=== PATIENT | male | born 1965 | race Caucasian/White ===

== ENCOUNTER 2019-08-07 02:06 | Emergency (ER) | payer OTHER ==
[~2019-08-07] VITALS: Ht 180.3 cm; Wt 77.1 kg
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
[2019-08-07] MEDS ORDERED: HYDROCODONE/APAP 10/325MG 1 EA TABLET ONE (05:44)
--- NOTE | 2019-08-07 05:51 | NUR ---
Patient discharged to home in stable condition. Written and verbal after care instructions given. Patient verbalizes understanding of instruction and RX. VSS. Ambulatory with steady gait, signed homeless waiver.
[2019-08-07 05:58] VITALS: BP 134/86
[2019-08-07] MEDS ORDERED: HYDROCODONE/APAP 10/325MG 1 EA TABLET PO ONE (06:00)
== END 2019-08-07 06:00 | disposition home or self-care (01) ==
LOC: ER 02:11
DX: S40.021A Contusion of right upper arm, initial encounter (principal); S80.11XA Contusion of right lower leg, initial encounter; S00.83XA Contusion of other part of head, initial encounter; V03.10XA Pedestrian on foot injured in collision with car, pick-up truck or van in traffic accident, initial encounter; Y92.410 Unspecified street and highway as the place of occurrence of the external cause; Z59.0 Homelessness; F17.200 Nicotine dependence, unspecified, uncomplicated

== ENCOUNTER 2019-08-11 08:51 | Emergency (ER) | payer SELFPAY ==
[~2019-08-11] VITALS: Ht 177.8 cm; Wt 83.9 kg
[2019-08-11] MEDS ORDERED: ACETAMINOPHEN ES 500 MG TABLET ONE (10:22)
[2019-08-11] MEDS ORDERED: ACETAMINOPHEN ES 500 MG TABLET PO ONE (10:30)
--- NOTE | 2019-08-11 11:14 | NUR ---
PT SEEN BY SANDY. WAS PROVIDED W/ DRY CLOTHES AND MEAL TRAY. WAS GIVEN TYLENOL 1G PO FOR PAIN. PT IS AMBULATORY W/ STEADY GAIT. PT REFUSED HOMELESS HALFWAY REFFERALS STATING "I HAVE MONEY FOR A HOTEL ROOM." REFUSED TO SIGN HOMELESS PATIENT WAIVER. DISCHARGE IN STABLE CONDITION.
[2019-08-11 11:18] VITALS: BP 184/80
== END 2019-08-11 11:19 | disposition home or self-care (01) ==
LOC: ER 08:53
DX: T69.8XXA Other specified effects of reduced temperature, initial encounter (principal); M25.561 Pain in right knee; M25.562 Pain in left knee; J45.909 Unspecified asthma, uncomplicated; I10 Essential (primary) hypertension; Z59.0 Homelessness; Z88.1 Allergy status to other antibiotic agents; Z88.2 Allergy status to sulfonamides; Z88.6 Allergy status to analgesic agent

== ENCOUNTER 2019-08-18 11:27 | Emergency (ER) | payer SELFPAY ==
[~2019-08-18] VITALS: Ht 182.9 cm; Wt 81.6 kg
--- NOTE | 2019-08-18 11:29 | NUR ---
CALLED TO TRIAGE NO ANSWER.
--- NOTE | 2019-08-18 11:43 | NUR ---
SEEN AND EXAMINED BY .
--- NOTE | 2019-08-18 11:43 | NUR ---
PT BIB SELF C/O SI "I WANT TO JUMP IN FRONT OF THE TRAIN", PT IS AAOX4, NOT IN RESPIRATORY DISTRESS, HOOKED TO MONITOR, KEPT RESTED AND COMFORTABLE, WILL CONTINUE TO MONITOR.
--- NOTE | 2019-08-18 11:44 | NUR ---
SECURITY AT BEDSIDE FOR WANDING.
[2019-08-18] MEDS ORDERED: OLANZAPINE 5 MG TABLET PO ONE (12:00)
--- NOTE | 2019-08-18 12:00 | NUR ---
URINAL GIVEN BUT UNABLE TO PROVIDE URINE SPECIMEN THIS TIME.
[2019-08-18 12:09] LABS: BASOPHILS # (AUTO) 0.1 /CMM (0.0-0.2); BASOPHILS % (AUTO) 0.7 % (0.0-2.0); EOSINOPHILS % (AUTO) 1.1 % (0.0-6.0); HEMATOCRIT 34 % (39-51); HEMOGLOBIN 11.1 g/dL (13.5-17.5); LYMPHOCYTES # (AUTO) 1.7 /CMM (0.8-4.8); LYMPHOCYTES % (AUTO) 16.3 % (20.0-44.0); MEAN CORPUSCULAR HGB CONC 32 g/dl (31.0-36.0); MEAN CORPUSCULAR VOLUME 80 fL (80-96); NEUTROPHILS # (AUTO) 7.7 /CMM (1.8-8.9); NEUTROPHILS % (AUTO) 72.9 % (43.0-81.0); PLATELET COUNT (AUTO) 436 /CMM (150-450); RED BLOOD CELL COUNT(AUTO) 4.32 MIL/uL (4.5-6.0); WHITE BLOOD COUNT (AUTO) 10.6 K/uL (4.3-11.0)
[2019-08-18] MEDS ORDERED: OLANZAPINE 5 MG TABLET ONE (12:12)
[2019-08-18 12:21] LABS: CHLORIDE 102 mmol/L (98-107); POTASSIUM 4.6 mmol/L (3.5-5.1); SODIUM SERUM 135 mmol/L (136-145)
[2019-08-18 12:22] LABS: ALANINE AMINOTRANSFERASE 16 U/L (12-78); ALKALINE PHOSPHATASE 133 U/L (46-116); ASPARTATE AMINOTRANSFERASE 21 U/L (15-37); BILIRUBIN,DIRECT 0.1 mg/dL (0.0-0.2); BILIRUBIN,TOTAL 0.3 mg/dL (0.2-1.0); CALCIUM, SERUM 9.2 mg/dL (8.5-10.1); CARBON DIOXIDE 26 mmol/L (21-32); CREATININE 1.1 mg/dL (0.6-1.3); GLUCOSE 85 mg/dL (74-106); UREA NITROGEN, BLOOD 20 mg/dL (7-18)
[2019-08-18 12:23] LABS: ACETAMINOPHEN < 2 ug/ml (10-30); ALBUMIN 3.4 g/dL (3.4-5.0); ALCOHOL, BLOOD < 3 mg/dL (0-0); SALICYLATE 2.1 mg/dL (2.8-20.0); TOTAL PROTEIN, SERUM 7.6 g/dL (6.4-8.2)
--- NOTE | 2019-08-18 13:25 | NUR ---
URINE SPECIMEN COLLECTED AND SENT TO LAB.
[2019-08-18 13:48] LABS: APPEARANCE,URINE CLEAR (CLEAR); BILIRUBIN,URINE NEGATIVE (NEGATIVE); BLOOD, URINE NEGATIVE Ery/uL (NEGATIVE); COLOR,URINE YELLOW (YELLOW); KETONES,URINE NEGATIVE (NEGATIVE); LEUKOCYTE ESTERASE ,URINE NEGATIVE (NEGATIVE); NITRITE, URINE NEGATIVE (NEGATIVE); PROTEIN,URINE 30 mg/dl (NEGATIVE); UGLUCOSE NEGATIVE (NEGATIVE); UROBILINOGEN,URINE 0.2 EU/dL (0.2)
[2019-08-18 14:04] LABS: BACTERIA,URINE None seen /HPF (None Seen); RBC,URINE 0-2 /HPF (0-2); SQUAMOUS EPITHELIAL CELL,UR Rare /HPF (None Seen); WBC,URINE 0-2 /HPF (0-3)
--- NOTE | 2019-08-18 14:39 | NUR ---
FOOD TRAY PROVIDED, TOLERATED PO WELL.
--- NOTE | 2019-08-18 14:42 | NUR ---
CALLED INSURANCE MARKETING SPECIALIST MARCIA KING [employer]
--- NOTE | 2019-08-18 14:46 | NUR ---
NUCLEAR PHYSICS PROFESSOR CHRISTINE ETA 1 HOUR
--- NOTE | 2019-08-18 17:18 | NUR ---
Patient given written and verbal discharge instructions. Patient verbalizes understanding of instructions. Patient is ambulatory with steady gait. Refuses offer of prison placement. Patient given list of available shelters in surrounding area.
[2019-08-18 17:19] VITALS: BP 121/81
== END 2019-08-18 17:29 | disposition home or self-care (01) ==
LOC: ER 11:28
DX: R45.851 Suicidal ideations (principal); I10 Essential (primary) hypertension; J45.909 Unspecified asthma, uncomplicated; F17.200 Nicotine dependence, unspecified, uncomplicated; Z88.1 Allergy status to other antibiotic agents; Z88.2 Allergy status to sulfonamides; Z59.0 Homelessness
CPT/HCPCS: 36415; 80048; 80076; 80305; 80307; 80329; 81001; 85025; 85730; 99283; G0480; 81000-TC

== ENCOUNTER 2019-08-21 16:16 | Emergency (ER) | payer SELFPAY ==
[~2019-08-21] VITALS: Ht 182.9 cm; Wt 81.6 kg
[2019-08-21 16:27] VITALS: BP 138/90
[2019-08-21] MEDS ORDERED: IBUPROFEN 600 MG TABLET PO ONE ×2 (16:38→17:00)
--- NOTE | 2019-08-21 16:51 | NUR ---
Patient eloped from facility. ER MD notified.
== END 2019-08-21 16:52 | disposition left against medical advice (07) ==
LOC: ER 16:21
DX: M79.671 Pain in right foot (principal); I10 Essential (primary) hypertension; J45.909 Unspecified asthma, uncomplicated; Z88.1 Allergy status to other antibiotic agents; Z88.6 Allergy status to analgesic agent; Z88.2 Allergy status to sulfonamides; Z59.0 Homelessness

== ENCOUNTER 2019-09-22 20:55 | Emergency (ER) | payer SELFPAY ==
[~2019-09-22] VITALS: Ht 167.6 cm; Wt 72.6 kg
[2019-09-22 21:12] VITALS: BP 156/81
[2019-09-22] MEDS ORDERED: IBUPROFEN 600 MG TABLET PO ONE ×2 (22:30)
== END 2019-09-23 00:32 | disposition home or self-care (01) ==
LOC: ER 21:01
DX: M79.671 Pain in right foot (principal); F14.10 Cocaine abuse, uncomplicated; J45.909 Unspecified asthma, uncomplicated; I10 Essential (primary) hypertension; Z88.2 Allergy status to sulfonamides; Z88.1 Allergy status to other antibiotic agents; Z59.0 Homelessness; Z88.8 Allergy status to other drugs, medicaments and biological substances

== ENCOUNTER 2019-09-29 04:16 | Emergency (ER) | payer MEDICAID ==
[~2019-09-29] VITALS: Ht 180.3 cm; Wt 72.6 kg
[2019-09-29 04:16] VITALS: BP 168/89
== END 2019-09-29 05:25 | disposition home or self-care (01) ==
LOC: ER 04:17
DX: M79.671 Pain in right foot (principal); I10 Essential (primary) hypertension; J45.909 Unspecified asthma, uncomplicated; F17.200 Nicotine dependence, unspecified, uncomplicated; Z88.1 Allergy status to other antibiotic agents; Z88.2 Allergy status to sulfonamides; Z59.0 Homelessness

== ENCOUNTER 2019-10-04 07:12 | Emergency (ER) | payer MEDICAID ==
[~2019-10-04] VITALS: Ht 180.3 cm; Wt 68.0 kg
--- NOTE | 2019-10-04 07:12 | NUR ---
PT BIB SELF C/O SI WITH PLAN TO WALK IN FRONT OF A CAR. DENIES HI, PT IS AAOX3, NOT IN RESPIRATORY DISTRESS, HOOKED TO MONITOR, KEPT RESTED AND COMFORTABLE, WILL CONTINUE TO MONITOR.
--- NOTE | 2019-10-04 07:30 | NUR ---
URINE SPECIMEN COLLECTED AND SENT TO LAB
--- NOTE | 2019-10-04 07:33 | NUR ---
CALLED SECURITY FOR WANDING.
--- NOTE | 2019-10-04 07:51 | NUR ---
ER PHLEB AT BEDSIDE FOR BLOOD DRAW.
--- NOTE | 2019-10-04 08:00 | NUR ---
FOOD TRAY PROVIDED.
[2019-10-04 08:06] LABS: APPEARANCE,URINE Clear (CLEAR); BILIRUBIN,URINE Negative (NEGATIVE); BLOOD, URINE Trace-intact Ery/uL (NEGATIVE); COLOR,URINE Yellow (YELLOW); KETONES,URINE Negative (NEGATIVE); LEUKOCYTE ESTERASE ,URINE Negative (NEGATIVE); NITRITE, URINE Negative (NEGATIVE); PH,URINE 5.5 (5.0-8.0); PROTEIN,URINE 30 mg/dl (NEGATIVE); UGLUCOSE Negative (NEGATIVE); UROBILINOGEN,URINE 0.2 EU/dL (0.2)
[2019-10-04 08:06] LABS: BASOPHILS # (AUTO) 0.1 /CMM (0.0-0.2); BASOPHILS % (AUTO) 0.9 % (0.0-2.0); EOSINOPHILS % (AUTO) 0.7 % (0.0-6.0); HEMATOCRIT 29 % (39-51); HEMOGLOBIN 9.5 g/dL (13.5-17.5); LYMPHOCYTES # (AUTO) 1.2 /CMM (0.8-4.8); LYMPHOCYTES % (AUTO) 14.4 % (20.0-44.0); MEAN CORPUSCULAR HGB CONC 33 g/dl (31.0-36.0); MEAN CORPUSCULAR VOLUME 79 fL (80-96); MONOCYTES # (AUTO) 0.7 /CMM (0.1-1.30); MONOCYTES % (AUTO) 8.3 % (2.0-12.0); NEUTROPHILS # (AUTO) 6.3 /CMM (1.8-8.9); NEUTROPHILS % (AUTO) 75.7 % (43.0-81.0); PLATELET COUNT (AUTO) 315 /CMM (150-450); RED BLOOD CELL COUNT(AUTO) 3.71 MIL/uL (4.5-6.0); WHITE BLOOD COUNT (AUTO) 8.3 K/uL (4.3-11.0)
[2019-10-04 08:09] LABS: BACTERIA,URINE Few /HPF (None Seen); RBC,URINE 0-2 /HPF (0-2); SQUAMOUS EPITHELIAL CELL,UR None Seen /HPF (None Seen); WBC,URINE 0-2 /HPF (0-3)
[2019-10-04 08:20] LABS: CALCIUM, SERUM 8.7 mg/dL (8.5-10.1); CARBON DIOXIDE 25 mmol/L (21-32); CHLORIDE 106 mmol/L (98-107); CREATININE 1.4 mg/dL (0.6-1.3); GLUCOSE 87 mg/dL (74-106); POTASSIUM 3.6 mmol/L (3.5-5.1); SODIUM SERUM 139 mmol/L (136-145); UREA NITROGEN, BLOOD 26 mg/dL (7-18)
[2019-10-04 08:31] LABS: ACETAMINOPHEN 0 ug/ml (10-30); ALANINE AMINOTRANSFERASE 25 U/L (12-78); ALBUMIN 3.2 g/dL (3.4-5.0); ALCOHOL, BLOOD < 3 mg/dL (0-0); ALKALINE PHOSPHATASE 111 U/L (46-116); ASPARTATE AMINOTRANSFERASE 23 U/L (15-37); BILIRUBIN,DIRECT 0.1 mg/dL (0.0-0.2); BILIRUBIN,TOTAL 0.3 mg/dL (0.2-1.0); SALICYLATE 15.4 mg/dL (2.8-20.0)
--- NOTE | 2019-10-04 09:00 | NUR ---
CALLED FACILITIES SUPERVISOR FOR PT INFOR AND ADMISSION FOR [facility].
--- NOTE | 2019-10-04 11:07 | NUR ---
SW was informed by the ER staff that the pt is medically cleared and that he would like to be transferred to [facility] in [place]. SW met with the pt at bedside and the pt is alert and oriented x4 (time, place, self and situation). Pt states that he is feeling suicidal and has a plan to walk in front of a car. ROMEL faxed a referral to [facility] with attn to [place] to the fax number: [phone]. ROMEL to follow up with the pts transfer.
--- NOTE | 2019-10-04 12:34 | NUR ---
SPOKE TO SOLOMON FROM [facility]. [phone], INTAKE DEPT. AWAITING CALL BACK FOR CONFIRMATION OF ADMITTING THE PATIENT.
--- NOTE | 2019-10-04 13:30 | NUR ---
LUNCH TRAY PROVIDED.
[2019-10-04] MEDS ORDERED: ACETAMINOPHEN ES 500 MG TABLET ONE (17:04)
[2019-10-04] MEDS ORDERED: ACETAMINOPHEN ES 500 MG TABLET PO ONE (17:30)
--- NOTE | 2019-10-05 01:24 | NUR ---
PT RESTING COMFORTABLY IN BED. NO ACUTE DISTRESS NOTED. VSS. SITTER AT BEDSIDE FOR SAFETY
--- NOTE | 2019-10-05 03:27 | NUR ---
PATIENT ACCPETED TO [facility] BY DR JAVIER. UNIT P6. # FOR REPORT [phone]
--- NOTE | 2019-10-05 04:58 | NUR ---
SPOKE TO MARY, WILL TRY TO ARRANGE TRANSPORT. WILL CALL BACK
--- NOTE | 2019-10-05 05:22 | NUR ---
[facility] ETA [phone]
--- NOTE | 2019-10-05 05:39 | NUR ---
REPORT GIVEN TO BIANCA SEO. YANET BANKS
--- NOTE | 2019-10-05 06:16 | NUR ---
PT REQUESTING TO BE DISCHARGED HOME. PT DENIES SI OR HI. DR SENA AWARE.
--- NOTE | 2019-10-05 06:28 | NUR ---
PATIENT OK TO BE DISCHARGED PER DR SENA. PATIENT REFUSES TO WAIT FOR DISCHARGE AFTERCARE INSTRUCTIONS, PT REFUSING TO SIGN HOMELESS WAIVER. PT LEFT ER IN STABLE CONDITION.
[2019-10-05 07:07] VITALS: BP 122/75
== END 2019-10-05 07:08 | disposition home or self-care (01) ==
LOC: ER 07:19
DX: R45.851 Suicidal ideations (principal); F19.959 Other psychoactive substance use, unspecified with psychoactive substance-induced psychotic disorder, unspecified; D50.9 Iron deficiency anemia, unspecified; N28.9 Disorder of kidney and ureter, unspecified; F11.10 Opioid abuse, uncomplicated; F14.10 Cocaine abuse, uncomplicated; F15.10 Other stimulant abuse, uncomplicated; I10 Essential (primary) hypertension; J45.909 Unspecified asthma, uncomplicated; Z88.1 Allergy status to other antibiotic agents; Z88.2 Allergy status to sulfonamides; Z88.6 Allergy status to analgesic agent; Z59.0 Homelessness
CPT/HCPCS: 36415; 80048; 80076; 80305; 80307; 80329; 81001; 85025; 99285; G0480; 81000-TC

== ENCOUNTER 2019-10-09 21:48 | Emergency (ER) | payer MEDICAID ==
[~2019-10-09] VITALS: Ht 180.3 cm; Wt 68.0 kg
--- NOTE | 2019-10-09 22:11 | NUR ---
BIBS. TO ER BED 7. AAOX4. AMBUALTORY. NOT IN RESP DISTRESS. CAME IN FOR HEADACHE X 1 WEEK INTERMITENT AND R FOOT PAIN SINCE THIS MORNING. PT STATES THATS HE HAS BEEN WALKING ALOT TODAY. TONEY YING AT BEDSIDE FOR EVAL.
[2019-10-09] MEDS ORDERED: HYDROCODONE/APAP 5/325MG 1 EACH TABLET ONE (22:22)
[2019-10-09] MEDS ORDERED: HYDROCODONE/APAP 5/325MG 1 EACH TABLET PO ONE (22:30)
--- NOTE | 2019-10-09 22:41 | NUR ---
Patient discharged to home in stable condition. Written and verbal after care instructions given. Patient verbalizes understanding of instruction. Pt ambulatory with a steady gait. Homeless waiver signed by pt.
[2019-10-09 22:42] VITALS: BP 135/74
== END 2019-10-09 22:42 | disposition home or self-care (01) ==
LOC: ER 21:49
DX: G43.909 Migraine, unspecified, not intractable, without status migrainosus (principal); M79.672 Pain in left foot; G89.29 Other chronic pain; J45.909 Unspecified asthma, uncomplicated; I10 Essential (primary) hypertension; Z88.1 Allergy status to other antibiotic agents; Z88.2 Allergy status to sulfonamides; Z88.8 Allergy status to other drugs, medicaments and biological substances; Z59.0 Homelessness

== ENCOUNTER 2019-10-13 22:56 | Emergency (ER) | payer MEDICAID ==
[~2019-10-13] VITALS: Ht 180.3 cm; Wt 68.0 kg
[2019-10-13 23:05] VITALS: BP 204/114
[2019-10-13] MEDS ORDERED: IBUPROFEN 600 MG TABLET PO ONE ×2 (23:05→23:30)
== END 2019-10-13 23:16 | disposition home or self-care (01) ==
LOC: ER 23:01
DX: M79.672 Pain in left foot (principal); M79.671 Pain in right foot; Z76.0 Encounter for issue of repeat prescription; I10 Essential (primary) hypertension; J45.909 Unspecified asthma, uncomplicated; F17.200 Nicotine dependence, unspecified, uncomplicated; Z88.1 Allergy status to other antibiotic agents; Z88.2 Allergy status to sulfonamides; Z59.0 Homelessness

== ENCOUNTER 2019-10-20 22:46 | Emergency (ER) | payer MEDICAID ==
[~2019-10-20] VITALS: Ht 180.3 cm; Wt 72.6 kg
[2019-10-20 22:51] VITALS: BP 153/85
--- NOTE | 2019-10-20 22:53 | NUR ---
PT CAME TO THE ER C/O L FOOT PAIN X 24 HOURS. DENIES ANY TRAUMA. PT AMBULATORY W/ STEADY GAIT, NO ACUTE DISTRESS NOTED. AWAITING FOR MD NEGRO.
[2019-10-20] MEDS ORDERED: IBUPROFEN 600 MG TABLET PO ONE ×2 (23:00→23:03)
--- NOTE | 2019-10-20 23:09 | NUR ---
Patient given written and verbal discharge instructions. Patient verbalizes understanding of instructions. Patient is ambulatory with steady gait. Refuses offer of retirement placement. Patient given list of available shelters in surrounding area.
== END 2019-10-20 23:11 | disposition home or self-care (01) ==
LOC: ER 22:48
DX: M72.2 Plantar fascial fibromatosis (principal); F17.210 Nicotine dependence, cigarettes, uncomplicated; I10 Essential (primary) hypertension; J45.909 Unspecified asthma, uncomplicated; Z88.1 Allergy status to other antibiotic agents; Z88.2 Allergy status to sulfonamides; Z88.6 Allergy status to analgesic agent; Z59.0 Homelessness

== ENCOUNTER 2019-10-28 03:25 | Emergency (ER) | payer MEDICAID ==
[~2019-10-28] VITALS: Ht 180.3 cm; Wt 72.6 kg
[2019-10-28 03:25] VITALS: BP 146/76
--- NOTE | 2019-10-28 03:46 | NUR ---
Patient discharged to home in stable condition. Written and verbal after care instructions given. Patient verbalizes understanding of instruction. ambulatory with a steady gait
--- NOTE | 2019-10-28 03:49 | NUR ---
Patient given written and verbal discharge instructions. Patient verbalizes understanding of instructions. Patient is ambulatory with steady gait. Refuses offer of [facility] placement. Patient given list of available shelters in surrounding area.
== END 2019-10-28 03:51 | disposition home or self-care (01) ==
LOC: ER 03:27
DX: G89.29 Other chronic pain (principal); G43.909 Migraine, unspecified, not intractable, without status migrainosus; Z76.0 Encounter for issue of repeat prescription; I10 Essential (primary) hypertension; J45.909 Unspecified asthma, uncomplicated; F17.200 Nicotine dependence, unspecified, uncomplicated; Z88.1 Allergy status to other antibiotic agents; Z88.2 Allergy status to sulfonamides; Z59.0 Homelessness

== ENCOUNTER 2019-11-02 00:17 | Emergency (ER) | payer MEDICAID ==
[~2019-11-02] VITALS: Ht 180.3 cm; Wt 72.6 kg
--- NOTE | 2019-11-02 00:25 | NUR ---
PATIENT CAME TO ER BED 13 C/O SUICIDAL IDEATIONPLANS TO JUMP IN FRONT OF A CAR. STATES THAT HE HEARS VOICES TELLING HIM TO, "DO IT, AND JUMP IN FRONT OF A CAR". AAOX4. NO SOB. BREATHING EVENLY AND UNLABORED ON ROOM AIR. CONNECTED TO MONITOR. PATIENT'S BELONGINGS ARE PLACED INTO A LOCKER. PATIENT IS IN A GOWN. SITTER AT BEDSIDE.
--- NOTE | 2019-11-02 00:37 | NUR ---
PATIENT'S URINE AND BLOOD COLLECTED AND SENT TO LAB.
[2019-11-02 01:23] LABS: BASOPHILS % (AUTO) 0.5 % (0.0-2.0); EOSINOPHILS % (AUTO) 2.4 % (0.0-6.0); HEMATOCRIT 33 % (39-51); HEMOGLOBIN 10.6 g/dL (13.5-17.5); LYMPHOCYTES # (AUTO) 1.9 /CMM (0.8-4.8); LYMPHOCYTES % (AUTO) 20.9 % (20.0-44.0); MEAN CORPUSCULAR HGB CONC 32 g/dl (31.0-36.0); MEAN CORPUSCULAR VOLUME 77 fL (80-96); MONOCYTES # (AUTO) 1.1 /CMM (0.1-1.30); MONOCYTES % (AUTO) 12.1 % (2.0-12.0); NEUTROPHILS # (AUTO) 5.8 /CMM (1.8-8.9); NEUTROPHILS % (AUTO) 64.1 % (43.0-81.0); PLATELET COUNT (AUTO) 327 /CMM (150-450); RED BLOOD CELL COUNT(AUTO) 4.27 MIL/uL (4.5-6.0); WHITE BLOOD COUNT (AUTO) 9.1 K/uL (4.3-11.0)
[2019-11-02 01:25] LABS: APPEARANCE,URINE Clear (CLEAR); BILIRUBIN,URINE Negative (NEGATIVE); BLOOD, URINE Negative Ery/uL (NEGATIVE); COLOR,URINE Yellow (YELLOW); KETONES,URINE Negative (NEGATIVE); LEUKOCYTE ESTERASE ,URINE Negative (NEGATIVE); NITRITE, URINE Negative (NEGATIVE); PH,URINE 5.5 (5.0-8.0); PROTEIN,URINE 100 mg/dl (NEGATIVE); UGLUCOSE Negative (NEGATIVE); UROBILINOGEN,URINE 0.2 EU/dL (0.2)
[2019-11-02 01:33] LABS: CARBON DIOXIDE 28 mmol/L (21-32); CHLORIDE 105 mmol/L (98-107); CREATININE 1.4 mg/dL (0.6-1.3); GLUCOSE 113 mg/dL (74-106); POTASSIUM 3.6 mmol/L (3.5-5.1); SODIUM SERUM 143 mmol/L (136-145); UREA NITROGEN, BLOOD 26 mg/dL (7-18)
[2019-11-02 01:39] LABS: ALANINE AMINOTRANSFERASE 29 U/L (12-78); ALBUMIN 3.7 g/dL (3.4-5.0); ALCOHOL, BLOOD < 3 mg/dL (0-0); ALKALINE PHOSPHATASE 124 U/L (46-116); ASPARTATE AMINOTRANSFERASE 29 U/L (15-37); BILIRUBIN,DIRECT 0.1 mg/dL (0.0-0.2); BILIRUBIN,TOTAL 0.3 mg/dL (0.2-1.0); TOTAL PROTEIN, SERUM 7.7 g/dL (6.4-8.2)
[2019-11-02 01:40] LABS: ACETAMINOPHEN 0 ug/ml (10-30); SALICYLATE 1.9 mg/dL (2.8-20.0)
[2019-11-02 01:47] LABS: BACTERIA,URINE Few /HPF (None Seen); RBC,URINE 0-2 /HPF (0-2)
[2019-11-02 01:48] LABS: SQUAMOUS EPITHELIAL CELL,UR Rare /HPF (None Seen)
[2019-11-02 01:49] LABS: SPERM,URINE Rare /HPF (None Seen); WBC,URINE 21-50 /HPF (0-3)
--- NOTE | 2019-11-02 02:57 | NUR ---
PT RESTING IN BED COMFORTABLY IN BEDD. VSS. SITTER AT BEDSIDE FOR SAFETY.NO ACUTE DISTRESS NOTED.
--- NOTE | 2019-11-02 05:46 | NUR ---
CLINICAL FAXED TO [facility] FOR VOLUNTARY PSYCH ADMISSION.
--- NOTE | 2019-11-02 06:26 | NUR ---
PT RESTING COMFORTABLY IN BED. VSS. NO ACUTE DISTRESS NOTED. SITTER AT BEDSIDE FOR SAFETY. WILL CONTINUE TO MONITOR.
--- NOTE | 2019-11-02 08:22 | NUR ---
Patient given written and verbal discharge instructions. Patient verbalizes understanding of instructions. Patient is ambulatory with steady gait. Refuses offer of intermediate placement. Patient given list of available shelters in surrounding area.
[2019-11-02 08:23] VITALS: BP 122/67
== END 2019-11-02 08:24 | disposition home or self-care (01) ==
LOC: ER 00:17
DX: R45.851 Suicidal ideations (principal); R44.0 Auditory hallucinations; F19.10 Other psychoactive substance abuse, uncomplicated; I10 Essential (primary) hypertension; J45.909 Unspecified asthma, uncomplicated; Z88.1 Allergy status to other antibiotic agents; Z88.2 Allergy status to sulfonamides; Z88.6 Allergy status to analgesic agent; Z59.0 Homelessness
CPT/HCPCS: 36415; 80048; 80076; 80305; 80307; 80329; 81001; 85025; 87086; 99284; G0480; 81000-TC

== ENCOUNTER 2019-11-13 04:28 | Emergency (ER) | payer SELFPAY ==
[~2019-11-13] VITALS: Ht 180.3 cm; Wt 68.0 kg
[2019-11-13 05:36] VITALS: BP 168/98
[2019-11-13] MEDS ORDERED: HYDROCODONE/APAP 10/325MG 1 EA TABLET ONE (05:55)
[2019-11-13] MEDS ORDERED: HYDROCODONE/APAP 10/325MG 1 EA TABLET PO ONE (06:00)
--- NOTE | 2019-11-13 06:08 | NUR ---
Gomez balderrama in [facility] - 11/13/19 at 0609 by BRO Patient discharged to home in stable condition. Written and verbal after care instructions given. Patient verbalizes understanding of instruction.
--- NOTE | 2019-11-13 06:09 | NUR ---
Patient given written and verbal discharge instructions. Patient verbalizes understanding of instructions. Patient is ambulatory with steady gait. Refuses offer of custodial placement. Patient given list of available shelters in surrounding area.
== END 2019-11-13 06:10 | disposition home or self-care (01) ==
LOC: ER 04:32
DX: M79.671 Pain in right foot (principal); I10 Essential (primary) hypertension; J45.909 Unspecified asthma, uncomplicated; F17.200 Nicotine dependence, unspecified, uncomplicated; Z88.1 Allergy status to other antibiotic agents; Z88.2 Allergy status to sulfonamides; Z59.0 Homelessness

== ENCOUNTER 2019-11-27 17:01 | Emergency (ER) | payer SELFPAY ==
[~2019-11-27] VITALS: Ht 170.2 cm; Wt 72.6 kg
--- NOTE | 2019-11-27 17:05 | NUR ---
PT BIB SELF C/O SUICIDAL IDEATION WITH PLAN TO JUMP IN FRONT OF TRAFFIC, PT IS AAOX4, NOT IN RESPIRATORY DISTRESS, V/S STABLE, KEPT RESTED AND COMFORTABLE, WILL CONTINUE TO MONITOR.
--- NOTE | 2019-11-27 17:22 | NUR ---
SEEN AND EXMAINED BY .
--- NOTE | 2019-11-27 18:00 | NUR ---
ER PHLEB AT BEDSIDE FOR BLOOD DRAW.
[2019-11-27 18:10] LABS: BASOPHILS % (AUTO) 0.6 % (0.0-2.0); EOSINOPHILS % (AUTO) 1.7 % (0.0-6.0); HEMATOCRIT 35 % (39-51); HEMOGLOBIN 10.8 g/dL (13.5-17.5); LYMPHOCYTES # (AUTO) 1.5 /CMM (0.8-4.8); LYMPHOCYTES % (AUTO) 21.5 % (20.0-44.0); MEAN CORPUSCULAR HGB CONC 31 g/dl (31.0-36.0); MEAN CORPUSCULAR VOLUME 80 fL (80-96); MONOCYTES # (AUTO) 0.7 /CMM (0.1-1.30); MONOCYTES % (AUTO) 10.3 % (2.0-12.0); NEUTROPHILS # (AUTO) 4.7 /CMM (1.8-8.9); NEUTROPHILS % (AUTO) 65.9 % (43.0-81.0); PLATELET COUNT (AUTO) 321 /CMM (150-450); RED BLOOD CELL COUNT(AUTO) 4.32 MIL/uL (4.5-6.0); WHITE BLOOD COUNT (AUTO) 7.1 K/uL (4.3-11.0)
--- NOTE | 2019-11-27 18:12 | NUR ---
URINE SPECIMEN COLLECTED AND SENT TO LAB.
[2019-11-27 18:18] LABS: CALCIUM, SERUM 8.9 mg/dL (8.5-10.1); CARBON DIOXIDE 27 mmol/L (21-32); CHLORIDE 103 mmol/L (98-107); CREATININE 1.4 mg/dL (0.6-1.3); GLUCOSE 103 mg/dL (74-106); POTASSIUM 3.7 mmol/L (3.5-5.1); SODIUM SERUM 137 mmol/L (136-145); UREA NITROGEN, BLOOD 26 mg/dL (7-18)
[2019-11-27 18:24] LABS: ALANINE AMINOTRANSFERASE 21 U/L (12-78); ALBUMIN 3.5 g/dL (3.4-5.0); ALCOHOL, BLOOD < 3 mg/dL (0-0); ALKALINE PHOSPHATASE 90 U/L (46-116); ASPARTATE AMINOTRANSFERASE 21 U/L (15-37); BILIRUBIN,TOTAL 0.1 mg/dL (0.2-1.0); TOTAL PROTEIN, SERUM 7.2 g/dL (6.4-8.2)
[2019-11-27 18:33] LABS: ACETAMINOPHEN 0 ug/ml (10-30); SALICYLATE 2.5 mg/dL (2.8-20.0)
[2019-11-27 18:42] LABS: APPEARANCE,URINE Clear (CLEAR); BILIRUBIN,URINE Negative (NEGATIVE); BLOOD, URINE Negative Ery/uL (NEGATIVE); COLOR,URINE Yellow (YELLOW); KETONES,URINE Negative (NEGATIVE); LEUKOCYTE ESTERASE ,URINE Negative (NEGATIVE); NITRITE, URINE Negative (NEGATIVE); PROTEIN,URINE 100 mg/dl (NEGATIVE); UGLUCOSE Negative (NEGATIVE); UROBILINOGEN,URINE 0.2 EU/dL (0.2)
[2019-11-27 18:54] LABS: BACTERIA,URINE Few /HPF (None Seen); RBC,URINE 0-2 /HPF (0-2); SQUAMOUS EPITHELIAL CELL,UR Few /HPF (None Seen); WBC,URINE 0-2 /HPF (0-3)
--- NOTE | 2019-11-27 19:27 | NUR ---
REPORT RECEIVED FROM MARYLOU RON RN FOR [facility]
[2019-11-27] MEDS ORDERED: ACETAMINOPHEN ES 500 MG TABLET ONE (23:51)
[2019-11-28] MEDS ORDERED: ACETAMINOPHEN ES 500 MG TABLET PO ONE
--- NOTE | 2019-11-28 00:03 | NUR ---
PT RESTING COMFORTABLY IN BED. VSS. NO ACUTE DISTRESS NOTED. SITTER AT BEDSIDE FOR SAFETY. WILL CONTINUE TO MONITOR
--- NOTE | 2019-11-28 03:47 | NUR ---
PT RESTING COMFORTABLY IN BED. VSS. NO ACUTE DISTRESS NOTED. SITTER AT BEDSIDE FOR SAFETY. WILL CONTINUE TO MONITOR
--- NOTE | 2019-11-28 06:00 | NUR ---
PT AWAKE. FOOD PROVIDED. COMFORTABLY IN BED. VSS. NO ACUTE DISTRESS NOTED. SITTER AT BEDSIDE FOR SAFETY. WILL CONTINUE TO MONITOR
--- NOTE | 2019-11-28 06:30 | NUR ---
PT RESTING COMFORTABLY IN BED. VSS. NO ACUTE DISTRESS NOTED. SITTER AT BEDSIDE FOR SAFETY. WILL CONTINUE TO MONITOR
--- NOTE | 2019-11-28 08:36 | NUR ---
BREAKFAST TRAY PROVIDED. TOLERATING PO WELL.
[2019-11-28] MEDS ORDERED: CLONIDINE HCL 0.1 MG TABLET ONE (11:10)
[2019-11-28] MEDS ORDERED: CLONIDINE HCL 0.1 MG TABLET PO ONE (11:30)
--- NOTE | 2019-11-28 11:58 | NUR ---
DR GALLEGOS AT BEDSIDE. PATIENT STATES HE DOES NOT FEEL SUICIDAL ANYMORE.
--- NOTE | 2019-11-28 12:06 | NUR ---
Patient given written and verbal discharge instructions. Patient verbalizes understanding of instructions. Patient is ambulatory with steady gait. Refuses offer of [facility] placement. Patient given list of available shelters in surrounding area. Patient in proper clothing upon discharge, name band removed. all belongings returned to patient.
[2019-11-28 12:08] VITALS: BP 161/93
== END 2019-11-28 12:08 | disposition home or self-care (01) ==
LOC: ER 17:06
DX: R45.851 Suicidal ideations (principal); I10 Essential (primary) hypertension; J45.909 Unspecified asthma, uncomplicated; F17.200 Nicotine dependence, unspecified, uncomplicated; Z88.1 Allergy status to other antibiotic agents; Z88.2 Allergy status to sulfonamides; Z59.0 Homelessness
CPT/HCPCS: 36415; 80048; 80076; 80305; 80307; 80329; 81001; 85025; 99285; G0480; 81000-TC

== ENCOUNTER 2019-12-15 16:53 | Emergency (ER) | payer SELFPAY ==
[~2019-12-15] VITALS: Ht 170.2 cm; Wt 72.6 kg
--- NOTE | 2019-12-15 17:01 | NUR ---
Patient came in to the er c/o +SI "i want to jump off the bridge". On room air, breathing evenly and unlabored. kept comfortable, will continue to monitor accordingly. Sitter at bedside for constant monitoring. Called security for wanding
--- NOTE | 2019-12-15 17:02 | NUR ---
security at bedside and wand the patient
[2019-12-15 17:39] LABS: BASOPHILS % (AUTO) 0.5 % (0.0-2.0); EOSINOPHILS % (AUTO) 5.2 % (0.0-6.0); HEMATOCRIT 32 % (39-51); HEMOGLOBIN 10.4 g/dL (13.5-17.5); LYMPHOCYTES # (AUTO) 1.2 /CMM (0.8-4.8); LYMPHOCYTES % (AUTO) 18.5 % (20.0-44.0); MEAN CORPUSCULAR HGB CONC 32 g/dl (31.0-36.0); MEAN CORPUSCULAR VOLUME 79 fL (80-96); MONOCYTES # (AUTO) 0.7 /CMM (0.1-1.30); MONOCYTES % (AUTO) 10.2 % (2.0-12.0); NEUTROPHILS # (AUTO) 4.4 /CMM (1.8-8.9); NEUTROPHILS % (AUTO) 65.6 % (43.0-81.0); PLATELET COUNT (AUTO) 319 /CMM (150-450); RED BLOOD CELL COUNT(AUTO) 4.09 MIL/uL (4.5-6.0); WHITE BLOOD COUNT (AUTO) 6.8 K/uL (4.3-11.0)
[2019-12-15 17:45] LABS: CALCIUM, SERUM 8.6 mg/dL (8.5-10.1); CARBON DIOXIDE 28 mmol/L (21-32); CHLORIDE 105 mmol/L (98-107); CREATININE 1.1 mg/dL (0.6-1.3); GLUCOSE 108 mg/dL (74-106); POTASSIUM 3.7 mmol/L (3.5-5.1); SODIUM SERUM 139 mmol/L (136-145); UREA NITROGEN, BLOOD 21 mg/dL (7-18)
[2019-12-15 17:51] LABS: ALANINE AMINOTRANSFERASE 21 U/L (12-78); ALBUMIN 3.1 g/dL (3.4-5.0); ALCOHOL, BLOOD < 3 mg/dL (0-0); ALKALINE PHOSPHATASE 106 U/L (46-116); ASPARTATE AMINOTRANSFERASE 17 U/L (15-37); BILIRUBIN,DIRECT 0.1 mg/dL (0.0-0.2); BILIRUBIN,TOTAL 0.2 mg/dL (0.2-1.0); SALICYLATE 3.3 mg/dL (2.8-20.0); TOTAL PROTEIN, SERUM 6.7 g/dL (6.4-8.2)
[2019-12-15] MEDS: IV NS 0.9% 1,000 ML BAG IV ONE (18:15)
[2019-12-15 18:50] LABS: APPEARANCE,URINE Clear (CLEAR); BILIRUBIN,URINE Negative (NEGATIVE); BLOOD, URINE Negative Ery/uL (NEGATIVE); COLOR,URINE Yellow (YELLOW); KETONES,URINE Negative (NEGATIVE); LEUKOCYTE ESTERASE ,URINE Negative (NEGATIVE); NITRITE, URINE Negative (NEGATIVE); PROTEIN,URINE 30 mg/dl (NEGATIVE); UGLUCOSE Negative (NEGATIVE); UROBILINOGEN,URINE 0.2 EU/dL (0.2)
[2019-12-15 18:52] LABS: RBC,URINE 0-2 /HPF (0-2)
[2019-12-15 18:53] LABS: BACTERIA,URINE None seen /HPF (None Seen); SQUAMOUS EPITHELIAL CELL,UR None Seen /HPF (None Seen)
--- NOTE | 2019-12-15 19:31 | NUR ---
ASSUMED CARE FOR THIS PATIENT
--- NOTE | 2019-12-15 21:14 | NUR ---
PT RESTING COMFORTABLY IN BED. VSS. NO ACUTE DISTRESS NOTED. WILL CONTINUE TO MONITOR. SITTER AT BEDSIDE FOR SAFETY
--- NOTE | 2019-12-16 00:18 | NUR ---
PT AMBULATED TO THE RESTROOM W / STEADY GAIT
--- NOTE | 2019-12-16 05:25 | NUR ---
PT STILL SLEEPING IN BED W/ NO ACUTE DISTRESS NOTED. SITTER AT BEDSIDE FOR CONSTANT OBSERVATION. WILL CONTINUE TO MONITOR
--- NOTE | 2019-12-16 06:45 | NUR ---
BRINDA FROM CRISIS TEAM AT BEDSIDE
--- NOTE | 2019-12-16 07:26 | NUR ---
[place] and water provided.
--- NOTE | 2019-12-16 07:32 | NUR ---
IV removed. Catheter intact and site benign. Pressure and 4x4 applied to site. No bleeding noted.
--- NOTE | 2019-12-16 07:33 | NUR ---
Patient given written and verbal discharge instructions. Patient verbalizes understanding of instructions. Patient is ambulatory with steady gait. Refuses offer of [facility] placement. Patient given list of available shelters in surrounding area. All belongings given to patient, name band removed, in proper clothing upon discharge.
[2019-12-16 07:36] VITALS: BP 132/79
== END 2019-12-16 07:36 | disposition home or self-care (01) ==
LOC: ER 16:53
DX: R45.851 Suicidal ideations (principal); F19.10 Other psychoactive substance abuse, uncomplicated; D64.9 Anemia, unspecified; F32.9 Major depressive disorder, single episode, unspecified; I10 Essential (primary) hypertension; J45.909 Unspecified asthma, uncomplicated; Z88.1 Allergy status to other antibiotic agents; Z88.2 Allergy status to sulfonamides; Z59.0 Homelessness
CPT/HCPCS: 36415; 80048; 80076; 80305; 80307; 80329; 81001; 85025; 99285; G0480; J7030; 81000-TC

== ENCOUNTER 2020-08-20 11:48 | Emergency (ER) | payer SELFPAY ==
[~2020-08-20] VITALS: Ht 180.3 cm; Wt 63.0 kg
--- NOTE | 2020-08-20 12:15 | NUR ---
PT BIBRA FROM THE STREETS TO ER BED 15 C/O BILAT FOOT PAIN, PT DENIES ANY RECENT TRAUMA. PT ADMITS TO SMOKING METH TODAY. DENIES SI/HI. VSS. SEEN AND EVALUATED BY SANDY REARDON.
[2020-08-20] MEDS ORDERED: LORAZEPAM 1 MG TABLET PO ONE (12:30)
[2020-08-20] MEDS ORDERED: LORAZEPAM 1 MG TABLET ONE (12:43)
--- NOTE | 2020-08-20 12:47 | NUR ---
REFUSED ATIVAN,DR REARDON AWARE
--- NOTE | 2020-08-20 17:40 | NUR ---
PT AAOX3, PROVIDED W/ FOOD. PT STATES FEELING MUCH BETTER NOW. ERMD AWARE. DENIES SI/HI. SEEN AND RE EVALUATED BY DR SCHERER. DISCHARGE IN STABLE CONDITION.
[2020-08-20 18:07] VITALS: BP 151/80
== END 2020-08-20 17:40 | disposition home or self-care (01) ==
LOC: ER 11:59
DX: M79.672 Pain in left foot (principal); M79.671 Pain in right foot; F15.10 Other stimulant abuse, uncomplicated; R53.83 Other fatigue; I10 Essential (primary) hypertension; J45.909 Unspecified asthma, uncomplicated; F17.200 Nicotine dependence, unspecified, uncomplicated; Z88.1 Allergy status to other antibiotic agents; Z88.2 Allergy status to sulfonamides; Z88.8 Allergy status to other drugs, medicaments and biological substances; Z59.0 Homelessness

== ENCOUNTER 2020-12-31 15:23 | Emergency (ER) | payer SELFPAY ==
[~2020-12-31] VITALS: Ht 180.3 cm; Wt 66.2 kg
[2020-12-31 15:30] VITALS: BP 142/84
--- NOTE | 2020-12-31 15:30 | NUR ---
[id number], FEELING SHORT OF BREATH S/P METH USE. SASTS 97% RA. DENIES SOB AT THIS TIME. RESPIRATION REGULAR AND UNLABORED. ATTACHED TO THE MONITOR.
--- NOTE | 2020-12-31 15:46 | NUR ---
Note conchis in EDM - 12/31/20 at 1553 by GET Patient does not wish to proceed with medical care recommended by TONEY Esposito. Patient given information related to possible complications, up to and including , which could occur as a result of leaving the hospital at this time. Patient verbalizes understanding of risks involved due to leaving against medical advice. Patient refused to signed AMA form.
--- NOTE | 2020-12-31 15:53 | NUR ---
Patient eloped from facility. TONEY Esposito notified. The patient before leaving the facility he started to yell,and call names to nurses just because a nurse asked to see his belongings.
== END 2020-12-31 16:25 | disposition left against medical advice (07) ==
LOC: ER 15:28
DX: T16.2XXA Foreign body in left ear, initial encounter (principal); I10 Essential (primary) hypertension; J45.909 Unspecified asthma, uncomplicated; I45.10 Unspecified right bundle-branch block; F17.210 Nicotine dependence, cigarettes, uncomplicated; Z59.0 Homelessness; Z88.1 Allergy status to other antibiotic agents; Z88.2 Allergy status to sulfonamides; W45.8XXA Other foreign body or object entering through skin, initial encounter; Y93.89 Activity, other specified; Y92.89 Other specified places as the place of occurrence of the external cause; Y99.8 Other external cause status

== ENCOUNTER 2021-04-09 07:48 | Emergency (ER) | payer SELFPAY ==
[~2021-04-09] VITALS: Ht 180.3 cm; Wt 68.0 kg
[2021-04-09 07:56] VITALS: BP 176/94
[2021-04-09] MEDS ORDERED: KETOROLAC TROMETHAMINE INJ 60 MG/2 ML VIAL IM ONE (08:30)
[2021-04-09] MEDS ORDERED: KETOROLAC TROMETHAMINE 15 MG/ML VIAL ONE (08:31)
--- NOTE | 2021-04-09 08:51 | NUR ---
Patient discharged to home in stable condition. Written and verbal after care instructions given. Patient verbalizes understanding of instruction.
== END 2021-04-09 08:52 | disposition home or self-care (01) ==
LOC: ER 07:49
DX: S70.11XA Contusion of right thigh, initial encounter (principal); I10 Essential (primary) hypertension; J45.909 Unspecified asthma, uncomplicated; Z88.1 Allergy status to other antibiotic agents; Z88.2 Allergy status to sulfonamides; Z59.00 Homelessness unspecified; X58.XXXA Exposure to other specified factors, initial encounter; Y93.89 Activity, other specified; Y92.89 Other specified places as the place of occurrence of the external cause; Y99.8 Other external cause status
CPT/HCPCS: 96372; 99283; J1885

== ENCOUNTER 2021-05-03 07:00 | Emergency (ER) | payer MEDICAID ==
[~2021-05-03] VITALS: Ht 180.3 cm; Wt 72.6 kg
[2021-05-03 07:07] VITALS: BP 153/86
[2021-05-03] MEDS ORDERED: LORAZEPAM 1 MG TABLET ONE (07:11)
[2021-05-03] MEDS ORDERED: IBUP-1955 PO (07:12)
[2021-05-03] MEDS: LORAZEPAM 1 MG TABLET PO ONE (07:12)
[2021-05-03] MEDS ORDERED: LORA-259 PO (07:12)
--- NOTE | 2021-05-03 07:14 | NUR ---
Patient discharged to home in stable condition. Written and verbal after care instructions given. Patient verbalizes understanding of instruction.
== END 2021-05-03 07:15 | disposition home or self-care (01) ==
LOC: ER 07:02
DX: F41.9 Anxiety disorder, unspecified (principal); M79.10 Myalgia, unspecified site; I10 Essential (primary) hypertension; J45.909 Unspecified asthma, uncomplicated; F17.200 Nicotine dependence, unspecified, uncomplicated; Z88.1 Allergy status to other antibiotic agents; Z88.2 Allergy status to sulfonamides; Z59.00 Homelessness unspecified; Z79.899 Other long term (current) drug therapy

== ENCOUNTER 2021-06-06 16:09 | Emergency (ER) | payer SELFPAY ==
[~2021-06-06] VITALS: Ht 180.3 cm; Wt 68.0 kg
[~2021-06-06 16:09] MED LIST: IBUP-1955 PO; LORA-259 PO
[2021-06-06 16:31] VITALS: BP 139/84
--- NOTE | 2021-06-06 16:51 | NUR ---
CHRISTIANE ZIEGLER AT BEDSIDE FOR EVAL.
[2021-06-06] MEDS ORDERED: LORA-259 PO (17:29)
[2021-06-06] MEDS ORDERED: CYCL5TAB PO (17:30)
[2021-06-06] MEDS ORDERED: HYDROCODONE/APAP 5/325MG TABLET PO ONE (17:30)
[2021-06-06] MEDS ORDERED: LORAZEPAM 1 MG TABLET PO ONE (17:30)
[2021-06-06] MEDS ORDERED: LORAZEPAM 1 MG TABLET ONE (17:39)
[2021-06-06] MEDS ORDERED: HYDROCODONE/APAP 5/325MG TABLET ONE (17:39)
== END 2021-06-06 18:24 | disposition home or self-care (01) ==
LOC: ER 16:26
DX: F41.9 Anxiety disorder, unspecified (principal); M62.838 Other muscle spasm; J45.909 Unspecified asthma, uncomplicated; Z88.2 Allergy status to sulfonamides; Z88.8 Allergy status to other drugs, medicaments and biological substances

== ENCOUNTER 2022-04-18 10:15 | Emergency (ER) | payer SELFPAY ==
[~2022-04-18] VITALS: Ht 180.3 cm; Wt 79.4 kg
[~2022-04-18 10:15] MED LIST changes: +CYCL5TAB PO
--- NOTE | 2022-04-18 10:15 | NUR ---
BIBS RA [phone] STATING THAT HE WANTED TO GO TO THE HOSPITAL FOR BODY PAIN, REFUSED VITALS AND STATES THAT HE WANTS TO LEAVE AND NOT BE SEEN BY THE DOCTOR, DR SCHERER AWARE. PT LEFT THE ER IN STABLE CONDITION, AMBULATED WITH STEADY GATE.
== END 2022-04-18 10:25 | disposition left against medical advice (07) ==
LOC: ER 10:17
DX: Z53.21 Procedure and treatment not carried out due to patient leaving prior to being seen by health care provider (principal); R52 Pain, unspecified; I10 Essential (primary) hypertension; J45.909 Unspecified asthma, uncomplicated

== ENCOUNTER 2022-06-30 22:18 | Emergency (ER) | payer MEDICAID ==
[~2022-06-30] VITALS: Ht 165.1 cm; Wt 68.0 kg
[2022-06-30 22:44] VITALS: BP 128/85
[2022-06-30] MEDS ORDERED: IBUPROFEN 400 MG TABLET ONE (22:50)
[2022-06-30] MEDS ORDERED: ONDANSETRON 4 MG TAB.RAPDIS ONE (22:50)
--- NOTE | 2022-06-30 22:52 | NUR ---
Patient discharged to home in stable condition. Written and verbal after care instructions given. Patient verbalizes understanding of instruction. Pt ambulatory with a steady gait
[2022-06-30] MEDS ORDERED: ONDANSETRON 4 MG TAB.RAPDIS PO ONE (23:00)
[2022-06-30] MEDS ORDERED: IBUPROFEN 400 MG TABLET PO ONE (23:00)
== END 2022-06-30 23:08 | disposition home or self-care (01) ==
LOC: ER 22:18
DX: G89.29 Other chronic pain (principal); R11.0 Nausea; I10 Essential (primary) hypertension; J45.909 Unspecified asthma, uncomplicated; Z88.0 Allergy status to penicillin; Z88.2 Allergy status to sulfonamides; Z88.8 Allergy status to other drugs, medicaments and biological substances; Z59.00 Homelessness unspecified; Z79.899 Other long term (current) drug therapy
CPT/HCPCS: 99283; Q0162

== ENCOUNTER 2022-08-10 10:08 | Emergency (ER) | payer SELFPAY ==
--- NOTE | 2022-08-10 10:34 | NUR ---
called, not ready,in restroom
--- NOTE | 2022-08-10 10:45 | NUR ---
CALLED IN ED WAITING ROOM. NO RESPONSE PATIENT LEFT WITHOUT BEING TRIAGED.
== END 2022-08-10 11:10 | disposition left against medical advice (07) ==
LOC: ER 10:11
DX: Z53.21 Procedure and treatment not carried out due to patient leaving prior to being seen by health care provider (principal)

== ENCOUNTER 2022-11-08 20:55 | Emergency (ER) | payer MEDICAID, OTHER ==
[~2022-11-08] VITALS: Ht 180.3 cm; Wt 68.0 kg
[2022-11-08] MEDS ORDERED: KETOROLAC TROMETHAMINE 15 MG/ML VIAL ONE (21:58)
[2022-11-08] MEDS ORDERED: KETOROLAC TROMETHAMINE INJ 60 MG/2 ML VIAL IM ONE (22:00)
--- NOTE | 2022-11-08 22:02 | NUR ---
XR AT BEDSIDE
--- NOTE | 2022-11-08 23:46 | NUR ---
Patient discharged to home in stable condition. Written and verbal after care instructions given. Patient verbalizes understanding of instruction.
[2022-11-09 00:24] VITALS: BP 145/90
== END 2022-11-09 00:24 | disposition home or self-care (01) ==
LOC: ER 20:57
DX: S80.211A Abrasion, right knee, initial encounter (principal); S99.912A Unspecified injury of left ankle, initial encounter; I10 Essential (primary) hypertension; J45.909 Unspecified asthma, uncomplicated; G89.29 Other chronic pain; Z88.2 Allergy status to sulfonamides; Z88.8 Allergy status to other drugs, medicaments and biological substances; Z59.00 Homelessness unspecified; W01.0XXA Fall on same level from slipping, tripping and stumbling without subsequent striking against object, initial encounter; Y93.89 Activity, other specified; Y92.89 Other specified places as the place of occurrence of the external cause; Y99.8 Other external cause status
CPT/HCPCS: 99284; 96372; 73610; 73564; J1885

== ENCOUNTER 2023-01-13 11:53 | Inpatient (IN) | payer MEDICAID ==
[~2023-01-13] VITALS: Ht 180.3 cm; Wt 56.7 kg
[2023-01-13] MEDS ORDERED: IV NS 0.9% 1,000 ML BAG IV ONE ×2 (12:00→13:00)
[2023-01-13 12:28] LABS: BASOPHILS % (AUTO) 0.6 % (0.0-2.0); HEMATOCRIT 26 % (39-51); HEMOGLOBIN 8.2 g/dL (13.5-17.5); LYMPHOCYTES # (AUTO) 1.3 K/uL (0.8-4.8); LYMPHOCYTES % (AUTO) 14.9 % (20.0-44.0); MEAN CORPUSCULAR HEMOGLOBIN 22 PG (26.0-33.0); MEAN CORPUSCULAR HGB CONC 31 g/dl (31.0-36.0); MEAN CORPUSCULAR VOLUME 71 fL (80-96); MONOCYTES # (AUTO) 1.3 K/uL (0.1-1.30); MONOCYTES % (AUTO) 15.4 % (2.0-12.0); NEUTROPHILS # (AUTO) 5.9 K/uL (1.8-8.9); NEUTROPHILS % (AUTO) 69.1 % (43.0-81.0); PLATELET COUNT (AUTO) 399 K/uL (150-450); RED BLOOD CELL COUNT(AUTO) 3.68 MIL/uL (4.5-6.0); RED CELL DISTRIBUTION WIDTH 20.3 % (11.5-15.0); WHITE BLOOD COUNT (AUTO) 8.6 K/uL (4.3-11.0)
[2023-01-13] MEDS ORDERED: ACETAMINOPHEN ES 500 MG TABLET PO ONE (12:30)
[2023-01-13 12:42] LABS: CALCIUM, SERUM 8.8 mg/dL (8.5-10.1); CARBON DIOXIDE 21 mmol/L (21-32); CHLORIDE 103 mmol/L (98-107); CREATININE 2.8 mg/dL (0.6-1.3); GLUCOSE 111 mg/dL (74-106); POTASSIUM 3.9 mmol/L (3.5-5.1); SODIUM SERUM 137 mmol/L (136-145); UREA NITROGEN, BLOOD 46 mg/dL (7-18)
[2023-01-13 12:48] LABS: ALANINE AMINOTRANSFERASE 32 U/L (12-78); ALBUMIN 3.1 g/dL (3.4-5.0); ALKALINE PHOSPHATASE 87 U/L (46-116); ASPARTATE AMINOTRANSFERASE 40 U/L (15-37); BILIRUBIN,DIRECT 0.1 mg/dL (0.0-0.2); BILIRUBIN,TOTAL 0.2 mg/dL (0.2-1.0); LIPASE 64 U/L (73-393); TOTAL PROTEIN, SERUM 6.8 g/dL (6.4-8.2)
[2023-01-13] MEDS ORDERED: ALBU18HF2 IH (13:14)
[2023-01-13] MEDS ORDERED: CLON0.1T PO (13:14)
[2023-01-13] MEDS ORDERED: LORAZEPAM INJ 2 MG/ML VIAL IV ONE (13:30)
[2023-01-13] MEDS ORDERED: ONDANSETRON HCL/PF 4 MG/2 ML VIAL IVP PRN (15:30)
[2023-01-13] MEDS ORDERED: MAG HYDROX/AL HYDROX/SIMETH 30 ML UDC PO PRN (15:30)
[2023-01-13] MEDS ORDERED: MAGNESIUM HYDROXIDE 30 ML UDC PO PRN (15:30)
[2023-01-13] MEDS ORDERED: Z GUARD REMEDY 4 OZ OINT TP PRN (15:30)
[2023-01-13] MEDS: CLONIDINE HCL 0.1 MG TABLET PO PRN (16:05)
[2023-01-13] MEDS: IV NS 0.9% 1,000 ML IV PRN (16:05)
[2023-01-13] MEDS: ASPIRIN 325 MG TABLET PO SCH (19:27)
[2023-01-13] MEDS: METOPROLOL TARTRATE 25 MG TABLET PO SCH (19:28)
[2023-01-13 20:00] VITALS: BP 165/97; TEMP 98; O2SAT 94
[2023-01-13] MEDS: hydrALAZINE HCL IV 20 MG VIAL IV PRN (21:01)
[2023-01-13 21:52] VITALS: BP 135/79; TEMP 98; O2SAT 95
[2023-01-13] MEDS: ACETAMINOPHEN 325 MG TABLET PO PRN (23:34)
[2023-01-14] VITALS (7 sets, daily range): BP systolic 144–179; BP diastolic 90–104; TEMP 98–98.2; O2SAT 95–99
[2023-01-14] MEDS: ACETAMINOPHEN 325 MG TABLET PO PRN ×4 (03:00→23:22)
[2023-01-14] MEDS: CLONIDINE HCL 0.1 MG TABLET PO PRN (04:53)
[2023-01-14] MEDS: IV NS 0.9% 1,000 ML IV PRN (04:57)
[2023-01-14 07:46] LABS: BASOPHILS % (AUTO) 0.2 % (0.0-2.0); EOSINOPHILS # (AUTO) 0.1 K/uL (0.0-0.7); EOSINOPHILS % (AUTO) 0.9 % (0.0-6.0); HEMATOCRIT 30 % (39-51); HEMOGLOBIN 9.1 g/dL (13.5-17.5); LYMPHOCYTES # (AUTO) 0.9 K/uL (0.8-4.8); MEAN CORPUSCULAR HEMOGLOBIN 22 PG (26.0-33.0); MEAN CORPUSCULAR HGB CONC 31 g/dl (31.0-36.0); MEAN CORPUSCULAR VOLUME 71 fL (80-96); MONOCYTES # (AUTO) 0.9 K/uL (0.1-1.30); MONOCYTES % (AUTO) 6.1 % (2.0-12.0); NEUTROPHILS # (AUTO) 12.5 K/uL (1.8-8.9); NEUTROPHILS % (AUTO) 86.8 % (43.0-81.0); PLATELET COUNT (AUTO) 393 K/uL (150-450); RED BLOOD CELL COUNT(AUTO) 4.16 MIL/uL (4.5-6.0); RED CELL DISTRIBUTION WIDTH 20.5 % (11.5-15.0); WHITE BLOOD COUNT (AUTO) 14.4 K/uL (4.3-11.0)
[2023-01-14 08:15] LABS: CALCIUM, SERUM 8.5 mg/dL (8.5-10.1); CREATININE 1.7 mg/dL (0.6-1.3); PHOSPHORUS 2.3 mg/dL (2.5-4.9); POTASSIUM 4.1 mmol/L (3.5-5.1)
[2023-01-14] MEDS: NITROGLYCERIN 30 GM TUBE TP SCH ×2 (09:49→21:14)
[2023-01-14] MEDS: ASPIRIN 325 MG TABLET PO SCH (09:49)
[2023-01-14] MEDS: hydrALAZINE HCL 50 MG TABLET PO SCH ×4 (09:50→16:42)
[2023-01-14] MEDS: HEPARIN SODIUM, PORCINE 5000 UNITS/1 ML VIAL SQ SCH ×2 (09:58→21:17)
[2023-01-14] MEDS: METOPROLOL TARTRATE 25 MG TABLET PO SCH ×2 (09:58→16:43)
[2023-01-14] MEDS ORDERED: K PHOS NEUTRAL 250 MG TABLET PO ONE (11:30)
[2023-01-14] MEDS: hydrALAZINE HCL IV 20 MG VIAL IV PRN (15:49)
[2023-01-14] MEDS: LORAZEPAM 1 MG TABLET PO PRN ×2 (17:09→23:22)
[2023-01-15] VITALS: BP 168/96; TEMP 98.4; O2SAT 98
[2023-01-15] MEDS: CLONIDINE HCL 0.1 MG TABLET PO PRN (00:46)
[2023-01-15 04:00] VITALS: BP 170/96
[2023-01-15 05:51] LABS: APPEARANCE,URINE CLEAR (CLEAR); COLOR,URINE YELLOW (YELLOW); PH,URINE 6.5 (5.0-8.0); PROTEIN,URINE TRACE mg/dl (NEGATIVE); UGLUCOSE NEGATIVE (NEGATIVE)
[2023-01-15 05:52] LABS: BILIRUBIN,URINE NEGATIVE (NEGATIVE); BLOOD, URINE NEGATIVE Ery/uL (NEGATIVE); EOSINOPHIL,URINE None Seen; KETONES,URINE NEGATIVE (NEGATIVE); LEUKOCYTE ESTERASE ,URINE TRACE (NEGATIVE); NITRITE, URINE NEGATIVE (NEGATIVE); UROBILINOGEN,URINE 0.2 EU/dL (0.2)
[2023-01-15 05:53] LABS: ADD URINE CULTURE NO; BACTERIA,URINE Rare /HPF (None Seen); RBC,URINE 0-2 /HPF (0-2); SQUAMOUS EPITHELIAL CELL,UR Few /HPF (None Seen); WBC,URINE 0-2 /HPF (0-3)
[2023-01-15 06:14] LABS: APPEARANCE,URINE CLEAR (CLEAR); BILIRUBIN,URINE NEGATIVE (NEGATIVE); BLOOD, URINE NEGATIVE Ery/uL (NEGATIVE); COLOR,URINE YELLOW (YELLOW); KETONES,URINE NEGATIVE (NEGATIVE); LEUKOCYTE ESTERASE ,URINE NEGATIVE (NEGATIVE); NITRITE, URINE NEGATIVE (NEGATIVE); PROTEIN,URINE 1+ mg/dl (NEGATIVE); UGLUCOSE NEGATIVE (NEGATIVE); UROBILINOGEN,URINE 0.2 EU/dL (0.2)
[2023-01-15 06:29] LABS: BARBITURATE, URINE NEGATIVE (NEGATIVE); BENZODIAZEPINE, URINE NEGATIVE (NEGATIVE); CANNABINOID, URINE NEGATIVE (NEGATIVE); COCCAINE, URINE NEGATIVE (NEGATIVE); CREATININE, URINE 50.8 MG/DL (30.0-125.0); OPIATE, URINE NEGATIVE (NEGATIVE); PHENCYCLIDINE SCREEN,URINE NEGATIVE (NEGATIVE); URINE TOTAL PROTEIN 45.4 mg/dL (0-11.9)
[2023-01-15] MEDS: hydrALAZINE HCL IV 20 MG VIAL IV PRN (06:29)
[2023-01-15 06:30] VITALS: BP 170/96
[2023-01-15 06:49] LABS: AMPHETAMINE, URINE POSITIVE (NEGATIVE)
[2023-01-15 08:00] VITALS: BP 169/92; TEMP 97.8; O2SAT 99
[2023-01-15] MEDS: ASPIRIN 325 MG TABLET PO SCH (09:00)
[2023-01-15] MEDS ORDERED: ISOSORBIDE DINITRATE (20MG) 20 MG TABLET PO SCH (09:00)
[2023-01-15] MEDS ORDERED: hydrALAZINE HCL 50 MG TABLET PO SCH (09:00)
[2023-01-15 09:01] VITALS: BP 169/92
[2023-01-15] MEDS: METOPROLOL TARTRATE 25 MG TABLET PO SCH (09:01)
[2023-01-15] MEDS: HEPARIN SODIUM, PORCINE 5000 UNITS/1 ML VIAL SQ SCH (09:07)
[2023-01-15] MEDS ORDERED: FURO-144 PO (13:01)
[2023-01-15] MEDS ORDERED: ASPI-992 PO (13:01)
[2023-01-15] MEDS ORDERED: SPIR25TA PO (13:01)
[2023-01-15] MEDS ORDERED: ISOS20TA8 PO (13:01)
[2023-01-15] MEDS ORDERED: HYDR-4077 PO (13:01)
== END 2023-01-15 11:45 | disposition home or self-care (01) | DRG 199 ==
LOC: ER 11:59 → TELE1 15:07
PROVIDERS: ADMIT Internal Medicine; ATTEND Nurse Practitioner Acute Care
DX: I16.0 Hypertensive urgency (principal); N17.0 Acute kidney failure with tubular necrosis; I21.A1 Myocardial infarction type 2; E44.0 Moderate protein-calorie malnutrition; G81.94 Hemiplegia, unspecified affecting left nondominant side; D50.9 Iron deficiency anemia, unspecified; F15.10 Other stimulant abuse, uncomplicated; I50.22 Chronic systolic (congestive) heart failure; I13.0 Hypertensive heart and chronic kidney disease with heart failure and stage 1 through stage 4 chronic kidney disease, or unspecified chronic kidney disease; D64.9 Anemia, unspecified; F19.11 Other psychoactive substance abuse, in remission; G89.29 Other chronic pain; N18.9 Chronic kidney disease, unspecified; J45.909 Unspecified asthma, uncomplicated; Z59.00 Homelessness unspecified; Z88.1 Allergy status to other antibiotic agents; Z88.2 Allergy status to sulfonamides; Z88.3 Allergy status to other anti-infective agents; R53.1 Weakness; R20.0 Anesthesia of skin; Z68.1 Body mass index [BMI] 19.9 or less, adult
CPT/HCPCS: 36415; 70450-TC; 71045-TC; 72125-TC; 76770-TC; 80048-TC; 80076-TC; 81001; 82570-TC; 82962-TC; 83690-TC; 83735-TC; 84100-TC; 84300-TC; 84484-TC; 85025-TC; 87086-TC; 93307-TC; A4223; G0378; G0480; J0360; J1644; J2060; J7030

== ENCOUNTER 2024-04-12 18:27 | Emergency (ER) | payer MEDICAID ==
[~2024-04-12] VITALS: Ht 180.3 cm; Wt 63.5 kg
[~2024-04-12 18:27] MED LIST changes: +ASPI-992 PO; -CYCL5TAB PO; +FURO-144 PO; +HYDR-4077 PO; -IBUP-1955 PO; +ISOS20TA8 PO; -LORA-259 PO; +SPIR25TA PO
[2024-04-12 19:10] VITALS: BP 156/101; TEMP 98.8; O2SAT 96
[2024-04-12] MEDS ORDERED: CLON0.1T PO (19:32)
[2024-04-12] MEDS: KETOROLAC TROMETHAMINE 15 MG/ML VIAL IM ONE (19:34)
== END 2024-04-12 21:40 | disposition home or self-care (01) ==
LOC: ER 18:43
DX: M79.605 Pain in left leg (principal); R20.0 Anesthesia of skin; I10 Essential (primary) hypertension; F17.200 Nicotine dependence, unspecified, uncomplicated; Z76.0 Encounter for issue of repeat prescription; Z59.00 Homelessness unspecified; Z79.899 Other long term (current) drug therapy; Z88.1 Allergy status to other antibiotic agents; Z88.2 Allergy status to sulfonamides
CPT/HCPCS: 99283; 96372; J1885

== ENCOUNTER 2024-04-16 13:12 | Emergency (ER) | payer MEDICAID ==
[~2024-04-16] VITALS: Ht 170.2 cm; Wt 54.0 kg
[~2024-04-16 13:12] MED LIST changes: +CLON0.1T PO
[2024-04-16 14:29] LABS: BASOPHILS # (AUTO) 0.1 K/uL (0.0-0.2); BASOPHILS % (AUTO) 0.7 % (0.0-2.0); EOSINOPHILS % (AUTO) 0.3 % (0.0-6.0); HEMATOCRIT 32 % (39-51); HEMOGLOBIN 10.2 g/dL (13.5-17.5); LYMPHOCYTES # (AUTO) 1.7 K/uL (0.8-4.8); LYMPHOCYTES % (AUTO) 13.9 % (20.0-44.0); MEAN CORPUSCULAR HEMOGLOBIN 24 PG (26.0-33.0); MEAN CORPUSCULAR HGB CONC 32 g/dl (31.0-36.0); MEAN CORPUSCULAR VOLUME 76 fL (80-96); MONOCYTES # (AUTO) 1.6 K/uL (0.1-1.30); MONOCYTES % (AUTO) 13.4 % (2.0-12.0); NEUTROPHILS # (AUTO) 8.7 K/uL (1.8-8.9); NEUTROPHILS % (AUTO) 71.7 % (43.0-81.0); PLATELET COUNT (AUTO) 472 K/uL (150-450); RED BLOOD CELL COUNT(AUTO) 4.24 MIL/uL (4.5-6.0); RED CELL DISTRIBUTION WIDTH 18.4 % (11.5-15.0); WHITE BLOOD COUNT (AUTO) 12.1 K/uL (4.3-11.0)
[2024-04-16 14:40] LABS: ALANINE AMINOTRANSFERASE 27 U/L (12-78); ALBUMIN 3.4 g/dL (3.4-5.0); ALCOHOL, BLOOD < 3 mg/dL (0-10); ALKALINE PHOSPHATASE 100 U/L (46-116); ASPARTATE AMINOTRANSFERASE 37 U/L (15-37); BILIRUBIN,DIRECT 0.2 mg/dL (0.0-0.2); BILIRUBIN,TOTAL 0.9 mg/dL (0.2-1.0); CARBON DIOXIDE 20 mmol/L (21-32); CHLORIDE 108 mmol/L (98-107); CREATININE 2.2 mg/dL (0.6-1.3); GLUCOSE 75 mg/dL (74-106); POTASSIUM 3.9 mmol/L (3.5-5.1); SODIUM SERUM 145 mmol/L (136-145); TOTAL PROTEIN, SERUM 7.5 g/dL (6.4-8.2); UREA NITROGEN, BLOOD 44 mg/dL (7-18)
[2024-04-16 14:41] LABS: ACETAMINOPHEN 0 ug/ml (10-30); SALICYLATE 0.5 mg/dL (2.8-20.0)
[2024-04-16 17:06] LABS: APPEARANCE,URINE CLEAR (CLEAR); BILIRUBIN,URINE NEGATIVE (NEGATIVE); BLOOD, URINE 1+ Ery/uL (NEGATIVE); COLOR,URINE YELLOW (YELLOW); KETONES,URINE TRACE mg/dL (NEGATIVE); LEUKOCYTE ESTERASE ,URINE NEGATIVE (NEGATIVE); NITRITE, URINE NEGATIVE (NEGATIVE); PROTEIN,URINE 1+ mg/dl (NEGATIVE); UGLUCOSE NEGATIVE (NEGATIVE); UROBILINOGEN,URINE 0.2 EU/dL (0.2)
[2024-04-16 17:16] LABS: AMPHETAMINE, URINE POSITIVE (NEGATIVE); BARBITURATE, URINE NEGATIVE (NEGATIVE); CANNABINOID, URINE NEGATIVE (NEGATIVE); COCCAINE, URINE NEGATIVE (NEGATIVE); OPIATE, URINE NEGATIVE (NEGATIVE); PHENCYCLIDINE SCREEN,URINE NEGATIVE (NEGATIVE)
[2024-04-16 17:17] LABS: BENZODIAZEPINE, URINE POSITIVE (NEGATIVE)
[2024-04-16 17:18] LABS: ADD URINE CULTURE NO; BACTERIA,URINE Few /HPF (None Seen); HYALINE CASTS, URINE Few /LPF (None Seen); MUCUS,URINE Few /LPF (None Seen); SQUAMOUS EPITHELIAL CELL,UR 0-2 /HPF (None Seen)
[2024-04-16 21:17] VITALS: BP 162/99; TEMP 98.6; O2SAT 97
== END 2024-04-16 21:17 | disposition home or self-care (01) ==
LOC: ER 13:18
DX: R45.1 Restlessness and agitation (principal); R46.2 Strange and inexplicable behavior; I10 Essential (primary) hypertension; Z59.00 Homelessness unspecified; Z79.82 Long term (current) use of aspirin; Z79.899 Other long term (current) drug therapy; Z88.1 Allergy status to other antibiotic agents; Z88.2 Allergy status to sulfonamides; Z20.822 Contact with and (suspected) exposure to COVID-19
CPT/HCPCS: 36415; 80048-TC; 80076-TC; 81001; 85025-TC; G0480

== ENCOUNTER 2024-11-19 22:12 | Inpatient (IN) | payer MEDICAID ==
[~2024-11-19] VITALS: Ht 165.1 cm; Wt 53.5 kg
[2024-11-20] MEDS: IV NS 0.9% 1,000 ML IV ONE (01:27)
[2024-11-20 01:42] LABS: BASOPHILS # (AUTO) 0.1 K/uL (0.0-0.2); BASOPHILS % (AUTO) 0.3 % (0.0-2.0); HEMATOCRIT 28 % (39-51); HEMOGLOBIN 8.8 g/dL (13.5-17.5); LYMPHOCYTES # (AUTO) 1.4 K/uL (0.8-4.8); LYMPHOCYTES % (AUTO) 6.5 % (20.0-44.0); MEAN CORPUSCULAR HEMOGLOBIN 25 PG (26.0-33.0); MEAN CORPUSCULAR HGB CONC 32 g/dl (31.0-36.0); MEAN CORPUSCULAR VOLUME 77 fL (80-96); MONOCYTES # (AUTO) 2.3 K/uL (0.1-1.30); MONOCYTES % (AUTO) 10.3 % (2.0-12.0); NEUTROPHILS # (AUTO) 18.5 K/uL (1.8-8.9); NEUTROPHILS % (AUTO) 82.9 % (43.0-81.0); PLATELET COUNT (AUTO) 716 K/uL (150-450); RED BLOOD CELL COUNT(AUTO) 3.57 MIL/uL (4.5-6.0); RED CELL DISTRIBUTION WIDTH 17.1 % (11.5-15.0); WHITE BLOOD COUNT (AUTO) 22.3 K/uL (4.3-11.0)
[2024-11-20 01:52] LABS: CALCIUM, SERUM 9.7 mg/dL (8.5-10.1); CARBON DIOXIDE 25 mmol/L (21-32); CHLORIDE 102 mmol/L (98-107); CREATININE 3.9 mg/dL (0.6-1.3); GLUCOSE 106 mg/dL (74-106); POTASSIUM 5.4 mmol/L (3.5-5.1); SODIUM SERUM 139 mmol/L (136-145); UREA NITROGEN, BLOOD 50 mg/dL (7-18)
[2024-11-20 02:08] LABS: ALANINE AMINOTRANSFERASE 15 U/L (12-78); ALBUMIN 2.4 g/dL (3.4-5.0); ALKALINE PHOSPHATASE 132 U/L (46-116); ASPARTATE AMINOTRANSFERASE 28 U/L (15-37); BILIRUBIN,TOTAL 0.3 mg/dL (0.2-1.0); NT-PRO BNP 464 pg/mL (0-125); TOTAL PROTEIN, SERUM 7.6 g/dL (6.4-8.2)
[2024-11-20 02:11] LABS: ALCOHOL, BLOOD < 3 mg/dL (0-10)
[2024-11-20] MEDS ORDERED: VANCOMYCIN 500 MG VIAL ONE (05:13)
[2024-11-20] MEDS ORDERED: VANCOMYCIN 1 GM /D5W 250 ML PB IV ONE (05:13)
[2024-11-20] MEDS: VANCOMYCIN HCL 1.25 GM in IV D5W 260 ML IV STA (06:25)
[2024-11-20] MEDS ORDERED: MAGNESIUM HYDROXIDE 30 ML UDC PO PRN (06:30)
[2024-11-20] MEDS ORDERED: ONDANSETRON HCL/PF 4 MG/2 ML VIAL IVP PRN (06:30)
[2024-11-20] MEDS ORDERED: ACETAMINOPHEN 325 MG TABLET PO PRN (06:30)
[2024-11-20] MEDS ORDERED: MAG HYDROX/AL HYDROX/SIMETH 30 ML UDC PO PRN (06:30)
[2024-11-20 06:33] VITALS: O2SAT 99
[2024-11-20 07:00] VITALS: BP 143/97; TEMP 98.1; O2SAT 96
[2024-11-20] MEDS: PANTOPRAZOLE 40 MG VIAL IV SCH (09:17)
[2024-11-20] MEDS: PIPERACILLIN /TAZOBACTAM 2.25 G in IV D5W 50 ML IV SCH (15:42)
[2024-11-20] MEDS: NICOTINE PATCH (21MG) 21 MG PATCH.TD24 TD SCH (15:48)
[2024-11-20] MEDS: SODIUM ZIRCONIUM CYCLOSILICATE 5 GM POWD.PACK PO ONE (15:49)
[2024-11-20] MEDS: MORPHINE SULFATE INJ 2 MG/ML DISP.SYRIN IV PRN (15:57)
[2024-11-20 16:00] VITALS: BP 146/94; TEMP 98.2; O2SAT 98
[2024-11-20] MEDS: IV NS 0.9% 1,000 ML IV PRN (17:11)
[2024-11-20 17:52] LABS: BASOPHILS % (AUTO) 0.2 % (0.0-2.0); EOSINOPHILS # (AUTO) 0.1 K/uL (0.0-0.7); EOSINOPHILS % (AUTO) 0.4 % (0.0-6.0); HEMATOCRIT 23 % (39-51); HEMOGLOBIN 7.4 g/dL (13.5-17.5); LYMPHOCYTES # (AUTO) 1.5 K/uL (0.8-4.8); LYMPHOCYTES % (AUTO) 8.7 % (20.0-44.0); MEAN CORPUSCULAR HEMOGLOBIN 25 PG (26.0-33.0); MEAN CORPUSCULAR HGB CONC 32 g/dl (31.0-36.0); MEAN CORPUSCULAR VOLUME 77 fL (80-96); MONOCYTES # (AUTO) 1.9 K/uL (0.1-1.30); MONOCYTES % (AUTO) 11.2 % (2.0-12.0); NEUTROPHILS # (AUTO) 13.7 K/uL (1.8-8.9); NEUTROPHILS % (AUTO) 79.5 % (43.0-81.0); PLATELET COUNT (AUTO) 585 K/uL (150-450); RED BLOOD CELL COUNT(AUTO) 3.01 MIL/uL (4.5-6.0); RED CELL DISTRIBUTION WIDTH 17.3 % (11.5-15.0); WHITE BLOOD COUNT (AUTO) 17.3 K/uL (4.3-11.0)
[2024-11-20 18:12] LABS: MAGNESIUM 2.3 mg/dL (1.8-2.4)
[2024-11-20 18:14] LABS: LACTIC ACID 0.8 mmol/L (0.4-2.0)
[2024-11-20 18:53] LABS: CALCIUM, SERUM 8.6 mg/dL (8.5-10.1); CREATININE 3.3 mg/dL (0.6-1.3); POTASSIUM 4.2 mmol/L (3.5-5.1)
[2024-11-20 20:00] VITALS: BP 138/86; TEMP 98.1; O2SAT 100
[2024-11-21] MEDS: TRAZODONE 50 MG TABLET PO SCH (00:06)
[2024-11-21 07:00] VITALS: BP 124/78; TEMP 99; O2SAT 96
[2024-11-21] MEDS: PANTOPRAZOLE 40 MG TABLET.DR PO SCH (09:49)
[2024-11-21 16:00] VITALS: BP 148/90; TEMP 98.8; O2SAT 96
[2024-11-21] MEDS: SOD FERRIC GLUC 125 MG in IV NS 0.9% 100 ML IV SCH (16:57)
[2024-11-21] MEDS: CLONIDINE HCL 0.1 MG TABLET PO SCH (17:47)
[2024-11-21] MEDS: VANCOMYCIN 750 MG in IV D5W 250 ML IV SCH (18:18)
[2024-11-21 20:00] VITALS: BP_SYST 108; TEMP 98.1; O2SAT 96
[2024-11-22 07:49] LABS: BASOPHILS % (AUTO) 0.4 % (0.0-2.0); EOSINOPHILS # (AUTO) 0.3 K/uL (0.0-0.7); EOSINOPHILS % (AUTO) 4.2 % (0.0-6.0); HEMATOCRIT 25 % (39-51); LYMPHOCYTES # (AUTO) 1.1 K/uL (0.8-4.8); MEAN CORPUSCULAR HEMOGLOBIN 25 PG (26.0-33.0); MEAN CORPUSCULAR HGB CONC 32 g/dl (31.0-36.0); MEAN CORPUSCULAR VOLUME 78 fL (80-96); MONOCYTES % (AUTO) 15.6 % (2.0-12.0); NEUTROPHILS # (AUTO) 4.2 K/uL (1.8-8.9); NEUTROPHILS % (AUTO) 62.8 % (43.0-81.0); PLATELET COUNT (AUTO) 527 K/uL (150-450); RED BLOOD CELL COUNT(AUTO) 3.22 MIL/uL (4.5-6.0); RED CELL DISTRIBUTION WIDTH 17.2 % (11.5-15.0); WHITE BLOOD COUNT (AUTO) 6.6 K/uL (4.3-11.0)
[2024-11-22 08:00] VITALS: BP 118/85; TEMP 98.2; O2SAT 98
[2024-11-22 08:16] LABS: BILIRUBIN,TOTAL 0.3 mg/dL (0.2-1.0); CREATININE 2.5 mg/dL (0.6-1.3); MAGNESIUM 2.2 mg/dL (1.8-2.4); PHOSPHORUS 3.7 mg/dL (2.5-4.9); POTASSIUM 3.7 mmol/L (3.5-5.1); TOTAL PROTEIN, SERUM 6.3 g/dL (6.4-8.2)
[2024-11-22 08:49] LABS: CALCIUM, SERUM 8.3 mg/dL (8.5-10.1)
[2024-11-22] MEDS ORDERED: LOPE2CAP40 PO (12:14)
[2024-11-22] MEDS ORDERED: CIPR-262 PO (12:14)
[2024-11-22] MEDS ORDERED: METR500T PO (12:14)
[2024-11-22] MEDS ORDERED: FERR-68 PO (12:14)
[2024-11-22] MEDS ORDERED: VANCOMYCIN 1 GM in IV D5W 250ml IV SCH (18:00)
== END 2024-11-22 16:44 | disposition home or self-care (01) | DRG 248 ==
LOC: ER 22:13 → MED 11-20 06:04
PROVIDERS: ADMIT Nurse Practitioner Family; ATTEND Nurse Practitioner Acute Care
DX: A04.9 Bacterial intestinal infection, unspecified (principal); J69.0 Pneumonitis due to inhalation of food and vomit; E87.20 Acidosis, unspecified; I13.0 Hypertensive heart and chronic kidney disease with heart failure and stage 1 through stage 4 chronic kidney disease, or unspecified chronic kidney disease; J18.9 Pneumonia, unspecified organism; E44.0 Moderate protein-calorie malnutrition; R64 Cachexia; N17.9 Acute kidney failure, unspecified; I50.9 Heart failure, unspecified; E88.09 Other disorders of plasma-protein metabolism, not elsewhere classified; F15.10 Other stimulant abuse, uncomplicated; D50.9 Iron deficiency anemia, unspecified; Z59.02 Unsheltered homelessness; Z88.1 Allergy status to other antibiotic agents; Z88.2 Allergy status to sulfonamides; E87.5 Hyperkalemia; G89.4 Chronic pain syndrome; F41.9 Anxiety disorder, unspecified; Z88.3 Allergy status to other anti-infective agents; N18.32 Chronic kidney disease, stage 3b; F19.10 Other psychoactive substance abuse, uncomplicated; L89.510 Pressure ulcer of right ankle, unstageable; L89.610 Pressure ulcer of right heel, unstageable; I25.10 Atherosclerotic heart disease of native coronary artery without angina pectoris; Z68.1 Body mass index [BMI] 19.9 or less, adult
CPT/HCPCS: 36415; 71045-TC; 76770-TC; 80048-TC; 80053-TC; 83540-TC; 83605-TC; 83735-TC; 83880; 84100-TC; 84484-TC; 85025-TC; 87040-TC; 98960; A4223; A6213; G0378; G0480; J2270; J2470; J2543; J2916; J3370; J3371; J7030; J7060